=== PATIENT | male | born 1960 | race Caucasian/White ===

== ENCOUNTER → 2016-08-09 | Outpatient (CLI) | payer BC ==
[2016-08-09 08:22] LABS: CHLORIDE,CL 107 mmol/L (98-110); SODIUM,NA 143 mmol/L (136-146)
== END ==
LOC: MW.CHIM 07:33
PROVIDERS: ATTEND Internal Medicine
DX: I10 Essential (primary) hypertension (principal); R73.03 Prediabetes
CPT/HCPCS: 36415; 80053; 80061; 83036; 85025

== ENCOUNTER 2019-06-13 10:49 | Day surgery (SDC) | payer BC ==
[~2019-06-13 10:49] MED LIST: Lactated Ringers 1,000 ML IV SCH; Sodium Chloride 0.9% 10 ML SDV IV PRN; Sodium Chloride 0.9% 10 ML Syringe FLUSH PRN; Sodium Chloride 0.9% 2.5 ML Syringe FLUSH PRN
--- NOTE | 2019-06-13 11:47 | PCM.PREANE ---
Preanesthetic Assessment - Anesthesia/Transfusion/Family Hx Anesthesia History: Prior Anesthesia Without Reaction Family History of Anesthesia Reaction: No Transfusion History: No Prior Transfusion(s) Intubation History: Unknown - Review of Systems General: No Symptoms Pulmonary: No Symptoms Cardiovascular: No Symptoms Gastrointestinal: No Symptoms, Other (screening) Neurological: No Symptoms Other: Reports: None - Physical Assessment Vital Signs: Last Vital Signs Temp 36.7 C 06/13/19 11:00 Pulse 62 06/13/19 11:00 Resp 16 06/13/19 11:00 BP 122/83 06/13/19 11:00 Pulse Ox 95 06/13/19 11:00 Height: 5 ft 11 in Weight: 106.141 kg ASA Class: 2 Mental Status: Alert & Oriented x3 Airway Class: Mallampati = 3 Dentition: Reports: Normal Dentition Thyro-Mental Finger Breadths: 3 Mouth Opening Finger Breadths: 3 ROM/Head Extension: Limited/Partial Lungs: Clear to Auscultation, Normal Respiratory Effort Cardiovascular: Regular Rate, Regular Rhythm - Allergies Allergies/Adverse Reactions: Allergies Allergy/AdvReac Type Severity Reaction Status Date / Time No Known Allergies Allergy Verified 06/07/19 07:32 - Blood Blood Available: No - Anesthesia Plan Pre-Op Medication Ordered: None - Acknowledgements Anesthesia Type Planned: MAC Pt an Appropriate Candidate for the Planned Anesthesia: Yes Alternatives and Risks of Anesthesia Discussed w Pt/Guardian: Yes Pt/Guardian Understands and Agrees with Anesthesia Plan: Yes PreAnesthesia Questionnaire HEENT History: Reports: Other (See Below) Other HEENT History: wears glasses Cardiovascular History: Reports: Hypertension Respiratory History: Reports: None Gastrointestinal History: Reports: None Genitourinary History: Reports: None Musculoskeletal History: Reports: Osteoarthritis Neurological History: Reports: None Psychiatric History: Reports: None Endocrine/Metabolic History: Reports: Diabetes, Type II, Obesity/BMI 30+ Other Endocrine/Metabolic History: "pre diabetic" Hematologic History: Reports: None Immunologic History: Reports: None Oncologic (Cancer) History: Reports: None Dermatologic History: Reports: None - Past Surgical History Head Surgeries/Procedures: Reports: None HEENT Surgical History: Reports: Eye Surgery Other HEENT Surgeries/Procedures: eye surgery at the age of 6 Cardiovascular Surgical History: Reports: None Respiratory Surgical History: Reports: None GI Surgical History: Reports: Colonoscopy () Male Surgical History: Reports: Vasectomy Endocrine Surgical History: Reports: None Neurological Surgical History: Reports: Lumbar Spine Other Neurological Surgeries/Procedures: hx back surgery Musculoskeletal Surgical History: Reports: Hip Replacement Other Musculoskeletal Surgeries/Procedures:: rosamaria hip replacements, last one 12 years ago Oncologic Surgical History: Reports: None Dermatological Surgical History: Reports: None - SUBSTANCE USE Smoking Status *Q: Current Some Day Smoker Tobacco Use Within Last Twelve Months: Cigars (occasional) Recreational Drug Use History: No - HOME MEDS Home Medications: Home Meds Losartan Potassium 100 mg PO DAILY 06/07/19 [History] amLODIPine Besylate [Amlodipine Besylate] 10 mg PO BEDTIME 06/07/19 [History] hydroCHLOROthiazide [Hydrochlorothiazide] 12.5 mg PO DAILY 06/07/19 [History] metFORMIN HCl [Metformin HCl] 500 mg PO DAILY 06/07/19 [History] - CURRENT (IN HOUSE) MEDS Current Meds: Current Medications Lactated Ringer's (Ringers, Lactated) 1,000 mls @ 125 mls/hr IV [facility]ED [facility] Last Admin: 06/13/19 11:08 Dose: 125 mls/hr Sodium Chloride (Saline Flush) 10 ml FLUSH ASDIRECTED PRN PRN Reason: Keep Vein Open Sodium Chloride (Saline Flush) 2.5 ml FLUSH ASDIRECTED PRN PRN Reason: Keep Vein Open Sodium Chloride (Saline Flush) 10 ml FLUSH ASDIRECTED PRN PRN Reason: Keep Vein Open Sodium Chloride (Saline Flush) 2.5 ml FLUSH ASDIRECTED PRN PRN Reason: Keep Vein Open Sodium Chloride (Normal Saline) 10 ml IV ASDIRECTED PRN PRN Reason: IV Use
[2019-06-13] MEDS ORDERED: Midazolam 1 MG/ML 2 ML SDV ONE (12:47)
[2019-06-13] MEDS ORDERED: Propofol 200 MG/20 ML SDV ONE ×2 (12:47→13:40)
[2019-06-13] MEDS ORDERED: fentaNYL 100 MCG/2 ML SDV ONE (12:47)
--- NOTE | 2019-06-13 13:53 | PCM.OPNOTE ---
- General Post-Op/Procedure Note Date of Surgery/Procedure: 06/13/19 Operative Procedure(s): Screening colonoscopy Findings: Transverse colon polyp, grade III hemorrhoids Pre Op Diagnosis: Screening colonoscopy Post-Op Diagnosis: Transverse colon polyp, grade III hemorrhoids Anesthesia Technique: MAC Primary Surgeon: Lynne Calles Condition: Good
--- NOTE | 2019-06-13 14:17 | PCM.POSTAN ---
POST ANESTHESIA ASSESSMENT - MENTAL STATUS Mental Status: Alert, Oriented - VITAL SIGNS Vital Signs: Last Vital Signs Temp 36.7 C 06/13/19 11:00 Pulse 53 L 06/13/19 14:10 Resp 10 L 06/13/19 14:10 BP 99/64 06/13/19 14:10 Pulse Ox 94 L 06/13/19 14:10 - RESPIRATORY Respiratory Status: Respiratory Rate WNL, Airway Patent, O2 Saturation Stable - CARDIOVASCULAR CV Status: Pulse Rate WNL, Blood Pressure Stable - GASTROINTESTINAL GI Status: No Symptoms - PAIN Pain Score: 0 - POST OP HYDRATION Hydration Status: Adequate & Stable - OBSERVATIONS Free Text/Narrative:: no anesthesia problems
--- NOTE | 2019-06-13 14:28 | PCM48HPAN ---
Post Anesthesia Note - EVALUATION WITHIN 48HRS OF ANESTHETIC Vital Signs in Normal Range: Yes Patient Participated in Evaluation: Yes Respiratory Function Stable: Yes Airway Patent: Yes Cardiovascular Function Stable: Yes Hydration Status Stable: Yes Pain Control Satisfactory: Yes Nausea and Vomiting Control Satisfactory: Yes Mental Status Recovered: Yes Vital Signs: Last Vital Signs Temp 36.4 C 06/13/19 14:15 Pulse 52 L 06/13/19 14:15 Resp 14 06/13/19 14:15 BP 99/74 06/13/19 14:15 Pulse Ox 94 L 06/13/19 14:15 - COMMENTS/OBSERVATIONS Free Text/Narrative:: No anesthesia problems
--- NOTE | 2019-06-13 15:41 | OR ---
SURGEON: LYNNE CALLES MD DATE OF PROCEDURE: 06/13/2019 PREOPERATIVE DIAGNOSIS: Screening colonoscopy. POSTOPERATIVE DIAGNOSES: 1. Grade 3 hemorrhoids. 2. Transverse colon polyp. PROCEDURE PERFORMED: Screening colonoscopy with polypectomy. PRIMARY SURGEON: Lynne Calles MD. ANESTHESIA: MAC. INSTRUMENT USED: Olympus colonoscope. EXTENT OF EXAM: To the cecum. PREPARATION: Good. LIMITATIONS: None. INDICATIONS FOR EXAMINATION: The patient is a 58-year-old male who presents for a screening colonoscopy. The patient and I discussed the procedure; expected perioperative course; and risks including bleeding, infection, or damage to surrounding structures including perforation. The patient verbalized understanding and wishes to proceed. PROCEDURE IN DETAIL: The patient was brought into the endoscopy suite and placed in the left lateral decubitus position. A time-out was completed verifying the patient's name, age, date of , allergies, and procedure to be performed. Monitored anesthesia care was induced and continuous oxygen was provided via nasal cannula throughout the procedure. After adequate sedation was achieved, a digital rectal exam was performed. This exam revealed enlarged grade 3 hemorrhoids. A well-lubricated endoscope was placed in the patient's rectum and advanced under direct visualization to the level of cecum. The cecum was identified by both visual and anatomic landmarks. A photograph was taken of the cecal cap; however, I was unable to retroflex the scope within the cecum. The scope was then fully withdrawn while examining the color, texture, anatomy, and integrity of the mucosa from the cecum to the anal canal. The patient was found to have a sessile transverse colon polyp at 70 cm. This required several bites from cold biopsy forceps to remove. It was sent to pathology, labeled as transverse colon polyp. The remainder of the colon was normal. The scope was then brought into the rectum and retroflexed to allow visualization of the anal canal opening. Again, I noted there to be enlarged hemorrhoidal tissue with some stigmata of recent bleeding. There was no active bleeding going on at the time of the scope. The scope was then straightened out and fully withdrawn. The cecum to anus time was greater than 6 minutes. The patient tolerated the procedure well and was transferred to the PACU in stable condition. ENDOSCOPIC DIAGNOSES: 1. Grade 3 hemorrhoids. 2. Transverse colon polyp. RECOMMENDATIONS: Follow up in clinic in 2 weeks. KARINA GREGORY /[id number]
== END 2019-06-13 14:34 | disposition home or self-care (01) ==
LOC: MW.SDS 10:49
PROVIDERS: ATTEND Surgery
DX: Z12.11 Encounter for screening for malignant neoplasm of colon (principal); K63.5 Polyp of colon; K64.2 Third degree hemorrhoids; I10 Essential (primary) hypertension; E11.9 Type 2 diabetes mellitus without complications; M19.90 Unspecified osteoarthritis, unspecified site; F17.290 Nicotine dependence, other tobacco product, uncomplicated; E66.9 Obesity, unspecified; Z68.32 Body mass index [BMI] 32.0-32.9, adult; Z79.84 Long term (current) use of oral hypoglycemic drugs; Z79.899 Other long term (current) drug therapy
CPT/HCPCS: 45380; J2250; J2704; J3010; J7120; 00812; 88305